=== PATIENT | female | born 1950 | race Caucasian/White ===

== ENCOUNTER 2016-11-12 10:58 | Emergency (ER) | payer MEDICARE, OTHER ==
[2016-11-12 11:33] LABS: BASOPHILS PERCENT AUTO 0.7 % (0.2-1.2); EOSINOPHILS PERCENT AUTO 4.2 % (0.0-4.0); HEMATOCRIT 39.6 % (33.0-47.0); HEMOGLOBIN 13.3 g/dL (12.0-16.0); LYMPHOCYTES PERCENT AUTO 29.8 % (25.0-50.0); MEAN CORPUSCULAR HEMOGLOBIN 28.4 pg (26.0-32.0); MEAN CORPUSCULAR HGB CONC 33.6 g/dL (32.0-36.0); MEAN CORPUSCULAR VOLUME 84.6 fL (78.0-93.0); MONOCYTES PERCENT AUTO 9.5 % (2.0-11.0); NEUTROPHILS PERCENT AUTO 55.8 % (50.0-80.0); RDW CV 13.9 % (10.0-15.0); RED BLOOD CELL COUNT 4.68 x10^6/uL (4.00-5.50)
--- NOTE | 2016-11-12 11:59 | EDM.PDOC ---
ED HISTORY OF PRESENT ILLNESS - General Chief Complaint: Cardiovascular Problem Stated Complaint: FLUTTERY FEELING IN CHEST Time Seen by Provider: 11/12/16 11:12 Source of Information: Reports: Patient History Limitations: Reports: No limitations - History of Present Illness INITIAL COMMENTS - FREE TEXT/NARRATIVE: Patient reports that she is feeling a fluttering in her chest over the last couple of days. She states it is happening at least once per hour and it is for a short duration, but has not kept track of that. She denies chest pain, shortness of breath, new type headaches. No nausea or vomiting. Regular bowel and bladder movements. She does endorse upper left shoulder/back pain. She currently does not have this feeling. She does have history of HTN, hypothyroidism, GERD, anxiety and depression. Stopped smoking 33 years ago. Surgical history includes tubal ligation in 1973, lab band 2006, and Cholecystectomy 1996. Symptom Onset Date: 11/09/16 Timing/Duration: Reports: Sudden onset Severity: mild Location, General: Reports: chest Worsens with: Reports: Other (sitting) Associated Symptoms (General): Reports: other (left upper back/shoulder pain) ED ROS GENERAL - Review of Systems Review Of Systems: See Below Constitutional: Reports: no symptoms HEENT: Reports: No symptoms Respiratory: Reports: no symptoms Cardiovascular: Reports: Other (flutter) Endocrine: Reports: no symptoms GI/Abdominal: Reports: No symptoms : Reports: no symptoms Musculoskeletal: Reports: back pain Skin: Reports: no symptoms Neurological: Reports: no symptoms Psychiatric: Reports: No symptoms Hematologic/Lymphatic: Reports: no symptoms Immunologic: Reports: no symptoms ED EXAM, GENERAL - Physical Exam Exam: See Below Exam Limited By: No limitations General Appearance: alert, WD/WN, no apparent distress Eye Exam: bilateral eye: EOMI, PERRL Ears: normal TMs Throat/Mouth: Normal inspection, Normal oropharynx Head: atraumatic, normocephalic Neck: normal inspection Respiratory/Chest: no respiratory distress, lungs clear, normal breath sounds, no accessory muscle use, chest non-tender Cardiovascular: normal peripheral pulses, regular rate, rhythm, no edema, no gallop Peripheral Pulses: 2+: posterior tibial (L), posterior tibial (R), dorsalis pedis (L), dorsalis pedis (R) GI/Abdominal: normal bowel sounds, soft, non tender, no organomegaly, no distention Back Exam: normal inspection Extremities: normal inspection, normal range of motion, non-tender, no pedal edema, normal capillary refill Neurological: alert, oriented, CN II-XII intact, normal cognition, normal gait, normal reflexes, no motor/sensory deficits Psychiatric: normal affect, normal mood Skin Exam: Warm, Dry, Intact, Normal color, No rash Lymphatic: no adenopathy Course - Orders/Labs/Meds Orders: Active Orders 24 hr Category Date Time Status EKG 12 Lead [EKG Documentation Completion] [RC] URGENT Care 11/12/16 11:13 Active Labs: Laboratory Tests 11/12/16 11/12/16 11/12/16 Range/Units 11:27 11:27 11:27 WBC 6.0 (4.0-10.0) x10^3/uL RBC 4.68 (4.00-5.50) x10^6/uL Hgb 13.3 (12.0-16.0) g/dL Hct 39.6 (33.0-47.0) % MCV 84.6 (78.0-93.0) fL MCH 28.4 (26.0-32.0) pg MCHC 33.6 (32.0-36.0) g/dL RDW Coeff of [place] 13.9 (10.0-15.0) % Plt Count 322 (130-400) x10^3/uL Neut % (Auto) 55.8 (50.0-80.0) % Lymph % (Auto) 29.8 (25.0-50.0) % [place] % (Auto) 9.5 (2.0-11.0) % Eos % (Auto) 4.2 H (0.0-4.0) % Baso % (Auto) 0.7 (0.2-1.2) % PT 11.0 (10.0-12.8) SEC INR 1.0 L (2.0-3.5) Sodium 141 (136-145) mmol/L Potassium 3.4 L (3.5-5.1) mmol/L Chloride 102 (98-107) mmol/L Carbon Dioxide 32 (21-32) mmol/L BUN 18 (7-18) mg/dL Creatinine 1.3 H (0.55-1.02) mg/dL Est Cr Clr Drug Dosing TNP Estimated GFR (MDRD) 41 Glucose 107 H (74-106) mg/dL Calcium 9.1 (8.5-10.1) mg/dL Corrected Calcium 9.26 (8.5-10.1) mg/dL Total Bilirubin 1.0 (0.2-1.0) mg/dL AST 23 (15-37) U/L ALT 41 (14-59) U/L Alkaline Phosphatase 61 (46-116) U/L Creatine Kinase 175 (26-192) U/L Creatine Kinase Index 1.1 (0.0-4.0) % CK-MB (CK-2) 1.9 (0.0-3.6) ng/mL Troponin I < 0.017 (<=0.056) ng/mL Total Protein 7.2 (6.4-8.2) g/dL Albumin 3.8 (3.4-5.0) g/dL Globulin 3.4 Albumin/Globulin Ratio 1.12 TSH, Ultra Sensitive (0.358-3.74) uIU/mL 11/12/16 Range/Units 11:27 WBC (4.0-10.0) x10^3/uL RBC (4.00-5.50) x10^6/uL Hgb (12.0-16.0) g/dL Hct (33.0-47.0) % MCV (78.0-93.0) fL MCH (26.0-32.0) pg MCHC (32.0-36.0) g/dL RDW Coeff of [place] (10.0-15.0) % Plt Count (130-400) x10^3/uL Neut % (Auto) (50.0-80.0) % Lymph % (Auto) (25.0-50.0) % [place] % (Auto) (2.0-11.0) % Eos % (Auto) (0.0-4.0) % Baso % (Auto) (0.2-1.2) % PT (10.0-12.8) SEC INR (2.0-3.5) Sodium (136-145) mmol/L Potassium (3.5-5.1) mmol/L Chloride (98-107) mmol/L Carbon Dioxide (21-32) mmol/L BUN (7-18) mg/dL Creatinine (0.55-1.02) mg/dL Est Cr Clr Drug Dosing Estimated GFR (MDRD) Glucose (74-106) mg/dL Calcium (8.5-10.1) mg/dL Corrected Calcium (8.5-10.1) mg/dL Total Bilirubin (0.2-1.0) mg/dL AST (15-37) U/L ALT (14-59) U/L Alkaline Phosphatase (46-116) U/L Creatine Kinase (26-192) U/L Creatine Kinase Index (0.0-4.0) % CK-MB (CK-2) (0.0-3.6) ng/mL Troponin I (<=0.056) ng/mL Total Protein (6.4-8.2) g/dL Albumin (3.4-5.0) g/dL Globulin Albumin/Globulin Ratio TSH, Ultra Sensitive 1.186 (0.358-3.74) uIU/mL Departure - Departure Time of Disposition: 13:05 Disposition: Home, Self-Care 01 Condition: good Clinical Impression: Periodic heart flutter Instructions: Palpitations, [id number] Referrals: Shima Marcano MD [Primary Care Provider] - Additional Instructions: Please follow up with your primary provider to determine the cause of your "fluttering" feeling in your chest. Your EKG showed a normal rhythm with no concerns, as did your cardiac enzymes. I would recommend a holter monitor that you would wear for 48 hours and will record your heart rhythm for those hours. You may also want to discuss a stress test and echocardiogram. A calcium scoring screen via CT is also something that you can have done. This can give you the total score of plaque in the arteries of your heart. This can help determine your risk for a heart attack. Please call us with any questions or concerns from now until your appointment with your provider - Problem List & Annotations (1) Periodic heart flutter SNOMED Code(s): 632069592 Code(s): I49.8 - OTHER SPECIFIED CARDIAC ARRHYTHMIAS Status: Acute Priority: Low Current Visit: Yes - Problem List Review Problem List Initiated/Reviewed/Updated: Yes - My Orders Last 24 Hours: My Active Orders 11/12/16 11:13 EKG 12 Lead [EKG Documentation Completion] [RC] URGENT - Assessment/Plan Last 24 Hours: My Active Orders 11/12/16 11:13 EKG 12 Lead [EKG Documentation Completion] [RC] URGENT Assessment:: Heart flutter Plan: Please follow up with your primary provider to determine the cause of your "fluttering" feeling in your chest. Your EKG showed a normal rhythm with no concerns, as did your cardiac enzymes. I would recommend a holter monitor that you would wear for 48 hours and will record your heart rhythm for those hours. You may also want to discuss a stress test and echocardiogram. A calcium scoring screen via CT is also something that you can have done. This can give you the total score of plaque in the arteries of your heart. This can help determine your risk for a heart attack. Please call us with any questions or concerns from now until your appointment with your provider
[2016-11-12 12:22] LABS: A/G RATIO 1.12; ALBUMIN 3.8 g/dL (3.4-5.0); ALKALINE PHOSPHATASE 61 U/L (46-116); CALCIUM 9.1 mg/dL (8.5-10.1); CHLORIDE,CL 102 mmol/L (98-107); CORRECTED CALCIUM 9.26 mg/dL (8.5-10.1); CREATININE 1.3 mg/dL (0.55-1.02); ESTIMATED GFR 41; GLUCOSE RANDOM 107 mg/dL (74-106)
[2016-11-12 12:23] LABS: CKMB 1.9 ng/mL (0.0-3.6); TROPONIN I < 0.017 ng/mL (<=0.056)
[2016-11-12 18:31] VITALS: BP 135/66
== END 2016-11-12 13:10 | disposition home or self-care (01) ==
LOC: VM.ED 10:58
DX: I49.8 Other specified cardiac arrhythmias (principal)
CPT/HCPCS: 36415; 80053; 82550; 82553; 84443; 84484; 85025; 85610; 93005; 99283-GF; 99285

== ENCOUNTER 2018-12-11 15:03 | Emergency (ER) | payer MEDICARE, OTHER ==
[2018-12-11 15:24] VITALS: BP 132/74
--- NOTE | 2018-12-12 06:21 | EDM.PDOC ---
ED HPI GENERAL MEDICAL PROBLEM - General Chief Complaint: Upper Extremity Injury/Pain Time Seen by Provider: 12/11/18 15:03 Source of Information: Reports: Patient History Limitations: Reports: No Limitations - History of Present Illness INITIAL COMMENTS - FREE TEXT/NARRATIVE: Pt. presents to ER with complaints of laceration to R hand. Pt. states that she slipped and sustained a laceration to webbing between 4th and 5th digits of he hand. States that the injury is superficial. Denies any bony injury. No numbness /tingling to the digits of the hand. Onset Date: 12/11/18 Location: Reports: Upper Extremity, Right Right Hand Pain Score (Numeric/FACES): 2 - Related Data Allergies Allergy/AdvReac Type Severity Reaction Status Date / Time Cephalosporins Allergy Cannot Verified 12/11/18 15:09 Remember hydrochlorothiazide Allergy Cannot Verified 12/11/18 15:09 Remember indomethacin [From Indocin] Allergy Cannot Verified 12/11/18 15:09 Remember metoprolol Allergy Cannot Verified 12/11/18 15:09 Remember morphine Allergy Cannot Verified 12/11/18 15:09 Remember Sulfa (Sulfonamide Allergy Cannot Verified 12/11/18 15:09 Antibiotics) Remember Home Meds: Home Meds Chlorthalidone 12/11/18 [History] Past Medical History Cardiovascular History: Reports: Hypertension Respiratory History: Reports: Asthma Social & Family History - Tobacco Use Smoking Status *Q: Never Smoker - Recreational Drug Use Recreational Drug Use: No Review of Systems - Review of Systems Review Of Systems: ROS reveals no pertinent complaints other than HPI. ED EXAM, GENERAL - Physical Exam Exam: See Below Extremities: Other (small, 1 cm. laceration to webbing between 4th and 5th digit of R hand.) Skin Exam: Warm, Dry, Intact, Normal Color, No Rash Course - Vital Signs Last Recorded V/S: Last Vital Signs Temp 36.8 C 12/11/18 15:12 Pulse 64 12/11/18 15:12 Resp 14 12/11/18 15:12 BP 132/74 12/11/18 15:16 Pulse Ox 97 12/11/18 15:12 Departure - Departure Time of Disposition: 15:36 Disposition: Home, Self-Care 01 Condition: Good Clinical Impression: Laceration - Discharge Information Instructions: Tissue Adhesive Wound Care, [id number] Referrals: Shima Marcano MD [Primary Care Provider] - Forms: ED Department Discharge Additional Instructions: Keep dry for 24 hours. minimize activity with those fingers for the next day or so. Do not pick at the dermabond; it is normal for it to become discolored. - Assessment/Plan Plan: Keep dry for 24 hours. minimize activity with those fingers for the next day or so. Do not pick at the dermabond; it is normal for it to become discolored.
--- NOTE | 2018-12-16 00:35 | EDM.PDOC ---
ED HPI GENERAL MEDICAL PROBLEM - General Chief Complaint: Upper Extremity Injury/Pain Time Seen by Provider: 12/11/18 15:03 Source of Information: Reports: Patient History Limitations: Reports: No Limitations - History of Present Illness INITIAL COMMENTS - FREE TEXT/NARRATIVE: Pt. presents to ER with complaints of laceration to R hand. Pt. states that she slipped and sustained a laceration to webbing between 4th and 5th digits of he hand. States that the injury is superficial. Denies any bony injury. No numbness /tingling to the digits of the hand. Onset Date: 12/11/18 Location: Reports: Upper Extremity, Right Right Hand Pain Score (Numeric/FACES): 2 - Related Data Allergies Allergy/AdvReac Type Severity Reaction Status Date / Time Cephalosporins Allergy Cannot Verified 12/11/18 15:09 Remember hydrochlorothiazide Allergy Cannot Verified 12/11/18 15:09 Remember indomethacin [From Indocin] Allergy Cannot Verified 12/11/18 15:09 Remember metoprolol Allergy Cannot Verified 12/11/18 15:09 Remember morphine Allergy Cannot Verified 12/11/18 15:09 Remember Sulfa (Sulfonamide Allergy Cannot Verified 12/11/18 15:09 Antibiotics) Remember Home Meds: Home Meds Chlorthalidone 12/11/18 [History] Past Medical History Cardiovascular History: Reports: Hypertension Respiratory History: Reports: Asthma Social & Family History - Tobacco Use Smoking Status *Q: Never Smoker - Recreational Drug Use Recreational Drug Use: No ED ROS GENERAL - Review of Systems Review Of Systems: ROS reveals no pertinent complaints other than HPI. Skin: Reports: Other (subcentimeter laceration to webbing between 4th and 5th digit of ) ED EXAM, GENERAL - Physical Exam Exam: See Below Free Text/Narrative:: Pt. presents to ER with complaints of laceration to R hand. Pt. states that she slipped and sustained a laceration to webbing between 4th and 5th digits of he hand. States that the injury is superficial. Denies any bony injury. No numbness /tingling to the digits of the hand. Extremities: Other (small, 1 cm. laceration to webbing between 4th and 5th digit of R hand.) Skin Exam: Warm, Dry Course - Vital Signs Last Recorded V/S: Last Vital Signs Temp 36.8 C 12/11/18 15:12 Pulse 64 12/11/18 15:12 Resp 14 12/11/18 15:12 BP 132/74 12/11/18 15:16 Pulse Ox 97 12/11/18 15:12 Departure - Departure Time of Disposition: 16:00 Disposition: Home, Self-Care 01 Condition: Good Clinical Impression: Laceration - Discharge Information Instructions: Tissue Adhesive Wound Care, [id number] Referrals: Shima Marcano MD [Primary Care Provider] - Forms: ED Department Discharge Additional Instructions: Keep dry for 24 hours. minimize activity with those fingers for the next day or so. Do not pick at the dermabond; it is normal for it to become discolored.
== END 2018-12-11 15:36 | disposition home or self-care (01) ==
LOC: VM.ED 15:03
DX: S61.411A Laceration without foreign body of right hand, initial encounter (principal); I10 Essential (primary) hypertension; Z88.8 Allergy status to other drugs, medicaments and biological substances; Z88.5 Allergy status to narcotic agent; Z88.1 Allergy status to other antibiotic agents; Z88.2 Allergy status to sulfonamides; W01.0XXA Fall on same level from slipping, tripping and stumbling without subsequent striking against object, initial encounter
CPT/HCPCS: 12001; 12041; 99282-25; 99283-GF

== ENCOUNTER 2020-10-18 09:51 | Day surgery (SDC) | payer MEDICARE, OTHER ==
[2020-10-18] MEDS ORDERED: fentaNYL 100 MCG/2 ML SDV ONE (10:06)
[2020-10-18] MEDS ORDERED: Propofol 200 MG/20 ML SDV ONE ×2 (10:07→11:41)
[2020-10-18] MEDS: Lactated Ringers 1,000 ML IV SCH (10:07)
[2020-10-18 11:57] VITALS: BP 125/67
[2020-10-18 12:11] VITALS: PULSE 66
--- NOTE | 2020-10-18 13:16 | OR ---
DATE OF SURGERY: 10/18/2020. REFERRING PROVIDER: Shima Marcano MD PRE-OPERATIVE DIAGNOSES: 1. Positive Cologuard stool test. The patient states last colonoscopy was about 8 years ago in [place], [place]. 2. No known family history of colon cancer or colon polyps. POST-OPERATIVE DIAGNOSES: 1. Normal colon and normal-appearing distal ileum. 2. Mild hemorrhoids, not acutely inflamed. PROCEDURE: Colonoscopy. SURGEON: Jean Marie Carter M.D. ANESTHESIA: Monitored anesthesia care. BOWEL PREP: Good. Fiorella is a 70-year-old female who was brought to the endoscopy suite after discussing risks and benefits of the procedure. Informed consent was obtained for conscious sedation and colonoscopy with or without biopsy and/or polypectomy. We also discussed possibility of missed lesions. Pre-procedure exam was unremarkable. IV, oxygen, and monitors were placed. The patient was placed in the left lateral decubitus position. Sedation was administered and a digital rectal exam was performed and unremarkable. Colonoscope was passed into the rectum and slowly advanced all the way to the cecum. Cecum was viewed and photographed. The ileocecal valve was intubated and distal ileum was also normal in appearance. The colonoscope was slowly withdrawn and the mucosa was closed observed in a direct circumferential manner. The ascending colon was unremarkable. The transverse colon was unremarkable. The descending colon was unremarkable. The sigmoid colon was unremarkable. Retroflexion was attempted, but not able to be performed. Rectal mucosa was remarkable for some mild hemorrhoids, not acutely inflamed. Scope was removed. The patient tolerated the procedure well. The patient was monitored until that baseline status. Discharge instructions were reviewed and the patient was discharged in good condition. COMPLICATIONS: None. TOTAL TIME: 17 minutes. ESTIMATED BLOOD LOSS: None. RECOMMENDATIONS/FOLLOW-UP: Recommend repeat colonoscopy again in 10 years barring any interval change in personal symptoms or family history. I would like to kindly thank Dr. Marcano for this referral. DMB: 10/18/2020 11:57:58 MODL: 10/18/2020 12:20:06 /[id number]
== END 2020-10-18 13:00 | disposition home or self-care (01) ==
LOC: VM.SDS 09:51
PROVIDERS: ATTEND Family Medicine
DX: R19.5 Other fecal abnormalities (principal); K64.9 Unspecified hemorrhoids; J45.909 Unspecified asthma, uncomplicated; I12.9 Hypertensive chronic kidney disease with stage 1 through stage 4 chronic kidney disease, or unspecified chronic kidney disease; N18.30 Chronic kidney disease, stage 3 unspecified; E78.49 Other hyperlipidemia; E03.9 Hypothyroidism, unspecified; E66.9 Obesity, unspecified; Z01.812 Encounter for preprocedural laboratory examination; Z20.828 Contact with and (suspected) exposure to other viral communicable diseases; Z79.899 Other long term (current) drug therapy; Z88.8 Allergy status to other drugs, medicaments and biological substances; Z88.5 Allergy status to narcotic agent; Z90.49 Acquired absence of other specified parts of digestive tract; Z98.890 Other specified postprocedural states; Z68.41 Body mass index [BMI] 40.0-44.9, adult
CPT/HCPCS: 00812; J2704; J3010; J7120; U0002

== ENCOUNTER 2022-07-09 15:58 | Emergency (ER) | payer MEDICARE, OTHER ==
[2022-07-09 17:46] VITALS: PULSE 87
== END 2022-07-09 17:31 | disposition home or self-care (01) ==
LOC: VM.ED 15:58
DX: S93.401A Sprain of unspecified ligament of right ankle, initial encounter (principal); S90.31XA Contusion of right foot, initial encounter; E78.00 Pure hypercholesterolemia, unspecified; I12.9 Hypertensive chronic kidney disease with stage 1 through stage 4 chronic kidney disease, or unspecified chronic kidney disease; N18.30 Chronic kidney disease, stage 3 unspecified; K21.9 Gastro-esophageal reflux disease without esophagitis; E03.9 Hypothyroidism, unspecified; E66.9 Obesity, unspecified; Z68.41 Body mass index [BMI] 40.0-44.9, adult; Z88.5 Allergy status to narcotic agent; Z88.8 Allergy status to other drugs, medicaments and biological substances; Z88.2 Allergy status to sulfonamides; Z79.899 Other long term (current) drug therapy; X50.1XXA Overexertion from prolonged static or awkward postures, initial encounter
CPT/HCPCS: 73600-RT; 99283

== ENCOUNTER 2024-01-24 12:12 | Emergency (ER) | payer MEDICARE, OTHER ==
[2024-01-24] MEDS: Albuterol/Ipratropium 3.0-0.5 MG/3 ML Neb Soln NEB ONE (12:31)
[2024-01-24 12:35] VITALS: BP 148/77; PULSE 82
[2024-01-24 13:20] LABS: CORONAVIRUS COVID-19 NAA NEGATIVE (NEGATIVE); INFLUENZA A NAA NEGATIVE (NEGATIVE); INFLUENZA B NAA NEGATIVE (NEGATIVE); RESPIRATORY SYNCYTIAL VIR NAA NEGATIVE (NEGATIVE)
[2024-01-24] MEDS: Take Home: Albuterol 18 GM Inhaler, 1 Inhaler Pack INH PRN (13:29)
== END 2024-01-24 13:34 | disposition home or self-care (01) ==
LOC: VM.ED 12:12
DX: J40 Bronchitis, not specified as acute or chronic (principal); I12.9 Hypertensive chronic kidney disease with stage 1 through stage 4 chronic kidney disease, or unspecified chronic kidney disease; N18.30 Chronic kidney disease, stage 3 unspecified; K21.9 Gastro-esophageal reflux disease without esophagitis; J45.909 Unspecified asthma, uncomplicated; E66.9 Obesity, unspecified; E03.9 Hypothyroidism, unspecified; Z88.1 Allergy status to other antibiotic agents; Z88.2 Allergy status to sulfonamides; Z88.5 Allergy status to narcotic agent; Z88.8 Allergy status to other drugs, medicaments and biological substances; Z79.899 Other long term (current) drug therapy; Z90.49 Acquired absence of other specified parts of digestive tract; Z79.2 Long term (current) use of antibiotics
CPT/HCPCS: 0241U; 71045; 94640; 99283; 99284; A9270; J7620-GY

== ENCOUNTER 2024-08-18 14:51 | Emergency (ER) | payer MEDICARE, OTHER ==
[2024-08-18] MEDS: Lidocaine 1% 30 ML SDV INJECT ONE (15:01)
[2024-08-18] MEDS: Acetaminophen/HYDROcodone 325-5 MG Tab PO ONE (16:00)
[2024-08-18 16:12] VITALS: BP 171/80; PULSE 90
== END 2024-08-18 17:10 | disposition home or self-care (01) ==
LOC: VM.ED 14:51
DX: S01.01XA Laceration without foreign body of scalp, initial encounter (principal); I10 Essential (primary) hypertension; K21.9 Gastro-esophageal reflux disease without esophagitis; E03.9 Hypothyroidism, unspecified; E66.9 Obesity, unspecified; Z90.49 Acquired absence of other specified parts of digestive tract; Z87.891 Personal history of nicotine dependence; Z79.890 Hormone replacement therapy; Z79.899 Other long term (current) drug therapy; Z88.2 Allergy status to sulfonamides; Z88.1 Allergy status to other antibiotic agents; Z88.5 Allergy status to narcotic agent; Z88.8 Allergy status to other drugs, medicaments and biological substances; Z68.41 Body mass index [BMI] 40.0-44.9, adult; W18.30XA Fall on same level, unspecified, initial encounter
CPT/HCPCS: 12002; 70450; 72125; 99283; A9270; J3490